=== PATIENT | male | born 1955 | race Caucasian/White ===

== ENCOUNTER 2018-06-16 20:40 | Emergency (ER) | payer BC ==
[2018-06-17] MEDS ORDERED: HYDROCODONE/ACETAMINOPHEN 5-325 MG TABLET PO ONE (00:18)
[2018-06-17] MEDS ORDERED: METHYLPREDNISOLONE ACETATE INJ 40 MG/1 ML ML IM STA (00:18)
[2018-06-17] MEDS ORDERED: HYDROCODONE/ACETAMINOPHEN 5-325 MG (6 TAB/ER DISP) PO PRN (00:19)
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
[2018-06-17 00:55] VITALS: BP 136/97
== END 2018-06-17 00:55 | disposition home or self-care (01) ==
LOC: ER 20:40
DX: M54.32 Sciatica, left side (principal); M79.605 Pain in left leg; I50.9 Heart failure, unspecified; I11.0 Hypertensive heart disease with heart failure; E78.00 Pure hypercholesterolemia, unspecified; Z79.02 Long term (current) use of antithrombotics/antiplatelets; I25.2 Old myocardial infarction
CPT/HCPCS: 99283; 96372; J1020

== ENCOUNTER 2020-02-10 13:22 | Emergency (ER) | payer BC ==
[2020-02-10] MEDS ORDERED: METHYLPREDNISOLONE ACETATE INJ 40 MG/1 ML ML IM ONE (13:49)
--- NOTE | 2020-02-10 13:54 | ER Document Report ---
HPI - HPI Patient complains to provider of: low back, buttocks pain Time Seen by Provider: 02/10/20 13:40 Onset: Yesterday Onset/Duration: Sudden Quality of pain: Achy Pain Level: 3 Context: 64-year-old male with history of diabetes, DVT PE high blood pressure cardiac disease that is currently taking Xarelto presents to the emergency department with complaints of right lower back pain radiating down his buttocks into his thigh that started yesterday. Denies trauma. Denies recent trip. Denies swelling or warmth. Reports he had some leftover [place] from his dentist that he has been taking for the pain. He reports he was at work prior to his arrival today when he was standing there and he could not move because he had so much pain. He took a [place] and the pain went away. Patient reports he feels better when he lays down. He denies fever vomiting diarrhea. He denies urinary or bowel incontinence or retention. Patient reports he has a history of sciatica that was treated here previously. He reports same type of feeling except the pain seems to hurt his entire right thigh, not just the back of his thigh. Associated Symptoms: None Exacerbated by: Standing Relieved by: Supine Similar symptoms previously: Yes Recently seen / treated by doctor: No - CONSTITUTIONAL Constitutional: DENIES: Fever, Chills - GASTROINTESTINAL Gastrointestinal: DENIES: Abdominal Pain - URINARY Urinary: DENIES: Dysuria, Urgency, Frequency - REPRODUCTIVE Reproductive: DENIES: : - MUSCULOSKELETAL Musculoskeletal: REPORTS: Extremity pain Past Medical History - General Information source: Patient - Social History Smoking Status: Former Smoker Cigarette use (# per day): No Chew tobacco use (# tins/day): No Frequency of alcohol use: None Drug Abuse: None Family History: None Patient has suicidal ideation: No Patient has homicidal ideation: No - Past Medical History Cardiac Medical History: Reports: Hx Congestive Heart Failure, Hx DVT, Hx Heart Attack, Hx Hypercholesterolemia, Hx Hypertension, Hx Pulmonary Embolism Denies: Hx Atrial Fibrillation, Hx Coronary Artery Disease, Hx Peripheral Vascular Disease, Hx Heart Murmur Pulmonary Medical History: Denies: Hx Tuberculosis Endocrine Medical History: Reports: Hx Diabetes Mellitus Type 2, Hx Hypothyroidism Renal/ Medical History: Denies: Hx Peritoneal Dialysis Psychiatric Medical History: Denies: Hx Depression Past Surgical History: Reports: Hx Cardiac Surgery - angioplasty x2, Hx Tonsillectomy. Denies: Hx Appendectomy, Hx Bowel Surgery, Hx Cholecystectomy, Hx Coronary Artery Bypass Graft, Hx Gastric Bypass Surgery, Hx Herniorrhaphy, Hx Pacemaker - Immunizations Hx Diphtheria, Pertussis, Tetanus Vaccination: No Hx Pneumococcal Vaccination: 12/09/12 Vertical Provider Document - CONSTITUTIONAL Agree With Documented VS: Yes Exam Limitations: No Limitations General Appearance: WD/WN, No Apparent Distress - INFECTION CONTROL TRAVEL OUTSIDE OF THE [place] IN LAST 30 DAYS: No - HEENT HEENT: Atraumatic, Normocephalic. negative: Conjuctival Injection - NECK Neck: Normal Inspection, Supple. negative: Lymphadenopathy-Left, Lymphadeno rosi-Right - RESPIRATORY Respiratory: Breath Sounds Normal, No Respiratory Distress - CARDIOVASCULAR Cardiovascular: Regular Rate, Regular Rhythm - GI/ABDOMEN Gastrointestinal: Abdomen Soft, Abdomen Non-Tender - BACK Back: Normal Inspection - No obvious deformity, no erythema no swelling no warmth denies vertebral tenderness. Patient complains of low right-sided back pain radiating to his buttocks and into his right thigh. No weakness. Positive straight leg on right side. negative: CVA Tenderness-Right, CVA Tenderness-Left - MUSCULOSKELETAL/EXTREMETIES Musculoskeletal/Extremeties: LOYDA FREEMAN - NEURO Level of Consciousness: Awake, Alert, Appropriate Motor/Sensory: No Motor Deficit - DERM Integumentary: Warm, Dry Adult Front & Back Diagram: 1 - c/o pain radiating down buttocks into right thigh 2 - radiates down buttocks to right thigh Course - Re-evaluation Re-evalutation: 02/10/20 14:14 64-year-old male with history of sciatica, diabetes, DVT, PE, high blood pressure presents emergency department with right lower back pain that radiates down his right buttocks into his right thigh. He complains started yesterday. Reports pain goes away when he lays down takes [place] that he had left over from dialysis. He denies trauma. No other complaints such as fever vomiting d iarrhea. Patient has history of sciatica on his left side. Symptoms today are on the right side. Will be treated for sciatica. He was prescribed same Depo-Medrol injection. He reports that helped last time. He was also instructed to monitor his glucose because steroids could increase this. He verbalized understanding to this. He was instructed on [place] which has taken. Was instructed on the importance of follow-up with Dr. Mane within the week. He reports he has an appointment March 20. I advised him to follow-up sooner. I also instructed him to return the emergency department for any worsening symptoms difficulty voiding fever vomiting diarrhea. He verbalized understanding to all instructions. Low suspicion for any meningitis, fracture, expanding/ruptured AAA, cauda equina syndrome, epidural mass lesion/abscess, herniated disc causing severe spinal stenosis, or other systemic infection at this time. Patient is aware that this condition can change from initial presentation and that she needs monitor symptoms closely for any acute changes. 02/10/20 14:41 Patient just received his steroid injection. He reports pain now 5 out of 5. He does have a ride home. Percocet ordered for his pain - Vital Signs Vital signs: Temp Pulse Resp BP Pulse Ox 98.5 F 94 16 163/99 H 95 02/10/20 13:41 02/10/20 13:27 02/10/20 13:27 02/10/20 13:48 02/10/20 13:27 Discharge - Discharge Clinical Impression: Right-sided low back pain with right-sided sciatica Qualifiers: Chronicity: acute Qualified Code(s): M54.41 - Lumbago with sciatica, right side Condition: Stable Disposition: HOME, SELF-CARE Instructions: Oral Narcotic Medication ([facility]), Sciatica ([facility]), Steroid Medication Injection Additional Instructions: *You have been evaluated for low back pain, sciatica *Take medication as prescribed *Rest , monitor your glucose as discussed *Follow up with Dr. Mane this week *Return to ED for worsening condition, changes, needs Monitor your blood pressure. Your blood pressure was elevated today. This may be because you were anxious, in pain or because you need medication. It is important to follow up with your primary care provider for full evaluation. Prescriptions: Hydrocodone/Acetaminophen [[place] 5-325 mg Tablet] 1 tab PO QID #15 tablet Forms: Elevated Blood Pressure Referrals: CORBIN MANE MD [Primary Care Provider] - Follow up in 3-5 days
[2020-02-10] MEDS ORDERED: OXYCODONE-ACETAMINOPHEN 5-325 MG TABLET PO ONE (14:41)
[2020-02-10 14:50] VITALS: BP 156/95
== END 2020-02-10 14:50 | disposition home or self-care (01) ==
LOC: ER 13:22
DX: M54.41 Lumbago with sciatica, right side (principal); Z87.898 Personal history of other specified conditions; Z87.891 Personal history of nicotine dependence; E11.9 Type 2 diabetes mellitus without complications; I50.9 Heart failure, unspecified; I11.0 Hypertensive heart disease with heart failure
CPT/HCPCS: 99283; 96372; J1030

== ENCOUNTER 2020-02-14 11:11 | Emergency (ER) | payer BC ==
--- NOTE | 2020-02-14 11:30 | ER Document Report ---
ED Medical Screen (RME) - General Chief Complaint: Back Pain Stated Complaint: LEG PAIN Time Seen by Provider: 02/14/20 11:24 Primary Care Provider: CORBIN MANE MD [Primary Care Provider] - Follow up as needed Mode of Arrival: Ambulatory Information source: Patient Notes: 64-year-old male with history of cardiac disease diabetes PE and sciatica presents to the emergency department again for complaints of low back pain radiating down his right leg and now radiating down his left leg. Patient was evaluated in this emergency department February 09 for low back pain radiating down his right leg and treated for sciatica. He was prescribed [place] and received steroid injection. Patient reports symptoms are worse and now radiating down his left leg. He denies other symptoms such as fever vomiting diarrhea. Denies urinary bowel incontinence or retention. Denies paresthesia. Denies injury. Reports he had this 2 years ago and got better. This time is not getting better. I have greeted and performed a rapid initial assessment of this patient. A comprehensive ED assessment and evaluation of the patient, analysis of test results and completion of the medical decision making process will be conducted by additional ED providers. TRAVEL OUTSIDE OF THE [place] IN LAST 30 DAYS: No - Related Data Allergies/Adverse Reactions: No Known Allergies Allergy (Verified 02/14/20 11:27) Past Medical History - Social History Chew tobacco use (# tins/day): No Frequency of alcohol use: None Drug Abuse: None - Past Medical History Cardiac Medical History: Reports: Hx Congestive Heart Failure, Hx DVT, Hx Heart Attack, Hx Hypercholesterolemia, Hx Hypertension, Hx Pulmonary Embolism Denies: Hx Atrial Fibrillation, Hx Coronary Artery Disease, Hx Peripheral Vascular Disease, Hx Heart Murmur Pulmonary Medical History: Denies: Hx Tuberculosis Endocrine Medical History: Reports: Hx Diabetes Mellitus Type 2, Hx Hypothyroidism Renal/ Medical History: Denies: Hx Peritoneal Dialysis Psychiatric Medical History: Denies: Hx Depression Past Surgical History: Reports: Hx Cardiac Surgery - angioplasty x2, Hx Tonsillectomy. Denies: Hx Appendectomy, Hx Bowel Surgery, Hx Cholecystectomy, Hx Coronary Artery Bypass Graft, Hx Gastric Bypass Surgery, Hx Herniorrhaphy, Hx Pacemaker - Immunizations Hx Diphtheria, Pertussis, Tetanus Vaccination: No Physical Exam - Vital signs Vitals: Temp Pulse Resp BP Pulse Ox 97.9 F 59 L 14 151/98 H 92 02/14/20 11:14 05/24/20 11:14 02/14/20 11:14 02/14/20 11:14 02/14/20 11:14 Course - Vital Signs Vital signs: Temp Pulse Resp BP Pulse Ox 97.9 F 59 L 14 151/98 H 92 02/14/20 11:24 02/14/20 11:14 02/14/20 11:14 02/14/20 11:14 02/14/20 11:14 Doctor's Discharge - Discharge Referrals: CORBIN MANE MD [Primary Care Provider] - Follow up as needed
[2020-02-14 11:52] LABS: APPEARANCE,URINE CLEAR; BILIRUBIN,URINE NEGATIVE (NEGATIVE); COLOR,URINE YELLOW; GLUCOSE, URINE NEGATIVE (NEGATIVE); KETONES,URINE NEGATIVE (NEGATIVE); LEUKOCYTE ESTERASE,URINE NEGATIVE (NEGATIVE); NITRITE,URINE NEGATIVE (NEGATIVE); PROTEIN,URINE NEGATIVE (NEGATIVE); UROBILINOGEN,URINE NEGATIVE mg/dL (<2.0)
[2020-02-14] MEDS ORDERED: LIDOCAINE 5% (700 MG) TRANSDERMAL ADH..PATCH TP ONE (12:27)
[2020-02-14] MEDS ORDERED: MORPHINE SULFATE 10 MG/ML INJ IM ONE ×3 (12:27→14:47)
--- NOTE | 2020-02-14 12:30 | ER Document Report ---
ED Extremity Problem, Lower - General Chief Complaint: Back Pain Stated Complaint: LEG PAIN Time Seen by Provider: 02/14/20 11:24 Primary Care Provider: CORBIN MANE MD [Primary Care Provider] - Follow up in 3-5 days Mode of Arrival: Ambulatory Notes: Patient is a very pleasant 64-year-old male who presents to the emergency department with a chief complaint of right leg pain. Patient states that his symptoms started about a week ago. He was seen here 4 days ago in the emergency department was treated with steroids and [place], but states that the pain is not any better and has actually gotten worse. Patient states that the pain is now on the left side also. Patient does have a history of sciatica. He also has history of pulmonary emboli in the past. He is currently on Xarelto. Patient denies any loss of bladder or bowel function. Denies history of IV drug use. Denies any paresthesias. TRAVEL OUTSIDE OF THE [place] IN LAST 30 DAYS: No - Related Data Allergies/Adverse Reactions: No Known Allergies Allergy (Verified 02/14/20 11:27) Past Medical History - General Information source: Patient - Social History Smoking Status: Never Smoker Chew tobacco use (# tins/day): No Frequency of alcohol use: None Drug Abuse: None Family History: None Patient has homicidal ideation: No - Past Medical History Cardiac Medical History: Reports: Hx Congestive Heart Failure, Hx DVT, Hx Heart Attack, Hx Hypercholesterolemia, Hx Hypertension, Hx Pulmonary Embolism Denies: Hx Atrial Fibrillation, Hx Coronary Artery Disease, Hx Peripheral Vascular Disease, Hx Heart Murmur Pulmonary Medical History: Denies: Hx Tuberculosis Endocrine Medical History: Reports: Hx Diabetes Mellitus Type 2, Hx Hypothyroidism Renal/ Medical History: Denies: Hx Peritoneal Dialysis Psychiatric Medical History: Denies: Hx Depression Past Surgical History: Reports: Hx Cardiac Surgery - angioplasty x2, Hx Tonsillectomy. Denies: Hx Appendectomy, Hx Bowel Surgery, Hx Cholecystectomy, Hx Coronary Artery Bypass Graft, Hx Gastric Bypass Surgery, Hx Herniorrhaphy, Hx Pacemaker - Immunizations Hx Diphtheria, Pertussis, Tetanus Vaccination: No Hx Pneumococcal Vaccination: 12/09/12 Review of Systems - Review of Systems Notes: REVIEW OF SYSTEMS: CONSTITUTIONAL : Denies recent illness. Denies recent unintentional weight loss. Denies fever, chills, or sweats. EENT: Denies eye, ear, throat, or mouth pain, discharge, or symptoms. Denies nasal or sinus congestion. CARDIOVASCULAR: Denies chest pain. RESPIRATORY: Denies shortness of breath, cough, congestion, difficulty breathing, or wheezing. GASTROINTESTINAL: Denies nausea, vomiting, and diarrhea. Denies abdominal pain. Denies constipation. GENITOURINARY: Denies difficulty urinating, burning, blood in urine, urgency or frequency. MUSCULOSKELETAL: See HPI. Denies joint pain or swelling. SKIN: Denies rash, itchiness, or lesions HEMATOLOGIC : Denies easy bruising or bleeding. LYMPHATIC: Denies swollen, painful, enlarged glands. NEUROLOGICAL: Denies no numbness or tingling denies weakness. Denies headache. Denies altered mental status. Denies alteration in speech. PSYCHIATRIC: Denies stress, anxiety, alteration in sleep patterns, or depression. All other systems reviewed and negative. Physical Exam - Vital signs Vitals: Temp Pulse Resp BP Pulse Ox 97.9 F 59 L 14 151/98 H 92 02/14/20 11:14 02/14/20 11:14 02/14/20 11:14 02/14/20 11:14 02/14/20 11:14 - Notes Notes: PHYSICAL EXAMINATION: GENERAL: Appears well, healthy, well-nourished, no acute distress. HEAD: Normocephalic, atraumatic. EYES: PERRL, conjunctiva normal, all extraocular movements intact, sclera nonicteric ENT: Moist mucous membranes. NECK: Supple, no noticeable swelling, redness, rash. Normal range of motion. LUNGS: Equal breath sounds bilaterally and clear to auscultation. No wheezes rales or rhonchi. CARDIOVASCULAR: S1-S2, regular rate, regular rhythm. Radial pulses 2+, normal. ABDOMEN: Normoactive bowel sounds. Soft, nontender, no guarding, no rebound tenderness, and no masses palpated. EXTREMITIES: Normal strength and range of motion, no pitting or edema. No cyanosis. NEUROLOGICAL: Moves all extremities upon command. Strength 5/5 in all extremities. PSYCH: Normal mood, normal affect. SKIN: Warm, dry. No rash, lesions, ulcerations noted. Normal skin turgor. Course - Re-evaluation Re-evalutation: 02/14/20 12:30 Urinalysis ordered in triage is unremarkable. Patient will have a venous Doppler study done to evaluate for DVT. Will give morphine and lidocaine patch for pain relief. 02/14/20 14:45 Patient's venous Doppler study is unofficially negative for DVT. Patient states that the pain went away with the morphine, but he feels the pain is back now. We will give him another dose of morphine and send him home with Flexeril. He has an appointment on Saturday with his primary care provider. I advised the patient to go to physical therapy. He is in agreement with this plan. Follow- up precautions were given. Verbal discharge instructions were given to the patient. They verbalized understanding. They are stable for discharge. - Vital Signs Vital signs: Temp Pulse Resp BP Pulse Ox 97.9 F 59 L 14 151/98 H 92 02/14/20 11:24 02/14/20 11:14 02/14/20 11:14 02/14/20 11:14 02/14/20 11:14 Discharge - Discharge Clinical Impression: Sciatica Qualifiers: Laterality: bilateral Qualified Code(s): M54.31 - Sciatica, right side Low back pain Qualifiers: Chronicity: acute Back pain laterality: bilateral Sciatica presence: with sciatica Sciatica laterality: bilateral sciatica Qualified Code(s): M54.42 - Lumbago with sciatica, left side Condition: Stable Disposition: HOME, SELF-CARE Additional Instructions: You were seen today in the emergency department for back pain and leg pain. Your Doppler study did not show any blockages. Her pain is due to sciatica. Please follow-up with your primary care provider. Please see if you can get physical therapy to strengthen your back muscles. Take Flexeril as needed for your pain. Prescriptions: Cyclobenzaprine HCl [Flexeril 10 mg Tablet] 10 mg PO TIDP PRN #20 tab PRN Reason: Referrals: CORBIN MANE MD [Primary Care Provider] - Follow up in 3-5 days
--- NOTE | 2020-02-14 15:03 | RADIOLOGY REPORT (SQ) ---
EXAM DESCRIPTION: VENOUS UNILATERAL LOWER IMAGES COMPLETED DATE/TIME: 02/14/2020 2:50 pm REASON FOR STUDY: RLE pain COMPARISON: None. TECHNIQUE: Dynamic and static pierce scale and color images acquired of the right leg venous system. S elected spectral images acquired with additional compression and augmentation maneuvers. The contrala teral common femoral vein and saphenofemoral junction were also imaged. Images stored on PACS. LIMITATIONS: None. FINDINGS: COMMON FEMORAL: Normal phasicity, compression and augmentation. No visualized echogenic ma terial on pierce scale. No defects on color images. FEMORAL: Normal compression and augmentation. No visualized echogenic material on pierce scale. No defe cts on color images. POPLITEAL: Normal compression, augmentation. No visualized echogenic material on pierce scale. No defec ts on color images. CALF VESSELS: Normal compression, augmentation. No visualized echogenic material on pierce scale. No de fects on color images. GSV and SSV: Normal compression, augmentation. No visualized echogenic material on pierce scale. No def ects on color images. ANY DEEP VENOUS INSUFFICIENCY: No. ANY EVIDENCE OF POPLITEAL CYST: No. OTHER: No other significant finding. CONTRALATERAL COMMON FEMORAL VEIN AND SAPHENOFEMORAL JUNCTION: Normal phasicity, compression and augmentation. No visualized echogenic material on pierce scale. No de fects on color images. IMPRESSION: NO EVIDENCE DVT OR SVT IN THE RIGHT LEG. TECHNICAL DOCUMENTATION: JOB ID: [id number] 2010 [employer]- All Rights Reserved Reading location - IP/workstation name: [email or web address]
[2020-02-14 15:47] VITALS: BP 142/82
== END 2020-02-14 15:47 | disposition home or self-care (01) ==
LOC: ER 11:11
DX: M54.42 Lumbago with sciatica, left side (principal); M54.41 Lumbago with sciatica, right side; M79.604 Pain in right leg; I50.9 Heart failure, unspecified; E78.00 Pure hypercholesterolemia, unspecified; I11.0 Hypertensive heart disease with heart failure; E11.9 Type 2 diabetes mellitus without complications; Z86.718 Personal history of other venous thrombosis and embolism; Z79.02 Long term (current) use of antithrombotics/antiplatelets; I25.2 Old myocardial infarction
CPT/HCPCS: 99284; 96372; 81001; 93971; J2270

== ENCOUNTER → 2020-02-19 | Outpatient (CLI) | payer BC ==
--- NOTE | 2020-02-19 14:47 | RADIOLOGY REPORT (SQ) ---
EXAM DESCRIPTION: HIP RIGHT AP/LATERAL IMAGES COMPLETED DATE/TIME: 02/19/2020 1:56 pm REASON FOR STUDY: PAIN IN RIGHT HIP M25.551 PAIN IN RIGHT HIP M54.10 RADICULOPATHY, SITE UNSPECIFI ED COMPARISON: None. NUMBER OF VIEWS: Two views. TECHNIQUE: AP pelvis and additional frog-leg view of the right hip. LIMITATIONS: None. FINDINGS: MINERALIZATION: Normal. RIGHT HIP: No fracture or dislocation. No worrisome bone lesions. LEFT HIP: No fracture or dislocation. No worrisome bone lesions. PUBIS AND ISCHIUM: No fracture. PELVIS: No fracture. SACRUM: No fracture or dislocation. No worrisome bone lesions. LOWER LUMBAR SPINE: No fracture or dislocation. No worrisome bone lesions. No significant disc disea se. SOFT TISSUES: No findings. OTHER: No other significant finding. IMPRESSION: NEGATIVE STUDY OF THE RIGHT HIP. NO RADIOGRAPHIC EVIDENCE OF ACUTE INJURY. TECHNICAL DOCUMENTATION: JOB ID: [id number] 2010 [employer]- All Rights Reserved Reading location - IP/workstation name: [email or web address]
--- NOTE | 2020-02-19 14:49 | RADIOLOGY REPORT (SQ) ---
EXAM DESCRIPTION: LUMBAR SPINE COMPLETE IMAGES COMPLETED DATE/TIME: 02/19/2020 1:56 pm REASON FOR STUDY: RADICULOPATHY, SITE UNSPECIFIED M25.551 PAIN IN RIGHT HIP M54.10 RADICULOPATHY, SITE UNSPECIFIED COMPARISON: None. NUMBER OF VIEWS: Five views including obliques. TECHNIQUE: AP, lateral, oblique, and sacral radiographic images acquired of the lumbar spine. LIMITATIONS: None. FINDINGS: MINERALIZATION: Normal. SEGMENTATION: Normal. No transitional anatomy. ALIGNMENT: Normal. VERTEBRAE: Maintained height. No fracture or worrisome bone lesion. DISCS: Marginal osteophytes at L1-2. Mild disc narrowing at L3-4 and L4-5. Greater narrowing at L5- S1. POSTERIOR ELEMENTS: Pedicles and facets are intact. No pars defect or posterior arch defects. HARDWARE: None in the spine. PARASPINAL SOFT TISSUES: Normal. PELVIS: Intact as visualized. No fractures or worrisome bone lesions. SI joints intact. OTHER: No other significant finding. IMPRESSION: Degenerative disc disease. Mild spondylosis. TECHNICAL DOCUMENTATION: JOB ID: [id number] 2010 [employer]- All Rights Reserved Reading location - IP/workstation name: [email or web address]
== END ==
LOC: OD 12:06
PROVIDERS: ATTEND Family Medicine
DX: M25.551 Pain in right hip (principal); M51.16 Intervertebral disc disorders with radiculopathy, lumbar region; M47.896 Other spondylosis, lumbar region
CPT/HCPCS: 72110